=== PATIENT | female | born 1990 | race African-American/Black ===

== ENCOUNTER 2024-07-18 22:54 | Emergency (ER) | payer SELFPAY ==
[2024-07-18] MEDS ORDERED: Amoxicillin/Potassium Clav 875 MG TAB ONE (23:04)
[2024-07-18] MEDS ORDERED: Amoxicillin 250 MG/5 ML (100 ML BOT) ORAL SUSP SYRINGE PO SCH (23:59)
== END 2024-07-18 23:43 | disposition home or self-care (01) ==
LOC: CSHERS 22:54
DX: J03.90 Acute tonsillitis, unspecified (principal)
CPT/HCPCS: 99283